=== PATIENT | female | born 1950 | race Hispanic/Latino ===

== ENCOUNTER 2020-06-11 10:00 | Observation (INO) | payer OTHER ==
[~2020-06-11] VITALS: Ht 165.1 cm; Wt 99.8 kg
[2020-06-11 15:33] LABS: BASOPHILS % (AUTO) 0.9 % (0.0-5.0); EOSINOPHILS % (AUTO) 1.6 % (0.0-8.0); HEMATOCRIT 40.3 % (36-48); LYMPHOCYTES % (AUTO) 25.9 % (21.0-51.0); MEAN CORPUSCULAR HEMOGLOBIN 29.3 pg (27.0-33.0); MEAN CORPUSCULAR VOLUME 91.4 fL (79-99); MONOCYTES % (AUTO) 4.9 % (3.0-13.0); NEUTROPHILS % (AUTO) 66.4 % (40.0-77.0); PLATELET COUNT (AUTO) 119 K/uL (130-400); RED BLOOD CELL COUNT(AUTO) 4.41 MIL/uL (4.00-5.50); RED CELL DISTRIBUTION WIDTH 12.2 % (11.0-15.5)
[2020-06-11 15:40] LABS: INR 1.02 (0.85-1.15); PROTHROMBIN TIME 10.9 SEC (9.6-11.6)
[2020-06-11 15:41] LABS: PARTIAL THROMBOPLASTIN TIME 23.8 SEC (26.3-35.5)
[2020-06-11 15:42] LABS: CREATININE 0.8 mg/dL (0.5-1.5); POTASSIUM 3.6 mmol/L (3.5-5.1)
[2020-06-14 10:24] VITALS: BP 180/66
[2020-06-14] MEDS ORDERED: SIMV-43 PO (11:48)
[2020-06-14] MEDS ORDERED: ASPI-1197 PO (11:48)
[2020-06-14] MEDS ORDERED: VITAMIN B3 PO (11:48)
[2020-06-14] MEDS ORDERED: LOSA50TA64 PO (11:48)
[2020-06-18] VITALS (26 sets, daily range): BP systolic 116–159; BP diastolic 56–79
[2020-06-18] MEDS ORDERED: LACTATED RINGERS 1000ML 1,000 ML IV ONE (06:17)
[2020-06-18] MEDS ORDERED: SODIUM CHLORIDE 0.9% 10 ML VIAL ONE (06:19)
[2020-06-18] MEDS ORDERED: vitamin d3 PO (06:53)
[2020-06-18] MEDS: CEFAZOLIN SODIUM 1 GM VIAL ONE ×2 (07:03→08:30)
[2020-06-18] MEDS ORDERED: LIDOCAINE PF 2% 5ML ABBOJECT ONE (07:03)
[2020-06-18] MEDS ORDERED: DEXAMETHASONE SOD PHOSPHATE 10MG/ML 1ML VIAL ONE (07:03)
[2020-06-18] MEDS ORDERED: GLYCOPYRROLATE 1 MG/5 ML SYRINGE ONE (07:03)
[2020-06-18] MEDS ORDERED: SUCCINYLCHOLINE CHLORIDE 20 MG/ML 10 ML VIAL ONE (07:03)
[2020-06-18] MEDS ORDERED: ROCURONIUM 10MG/1ML SYR 10 MG/ML ML ONE (07:04)
[2020-06-18] MEDS ORDERED: FENTANYL CITRATE PF 50 MCG/1 ML 2ML VIAL ONE ×2 (07:04→10:12)
[2020-06-18] MEDS ORDERED: PROPOFOL 10 MG/ML 20ML VIAL IV ONE ×2 (07:04→07:05)
[2020-06-18] MEDS ORDERED: NEOSTIGMINE 5MG/5ML SYR IV ONE (07:04)
[2020-06-18] MEDS ORDERED: MIDAZOLAM HCL 1 MG/ML 2ML VIAL ONE (07:04)
[2020-06-18] MEDS ORDERED: ONDANSETRON HCL 4 MG/2 ML VIAL ONE (07:04)
[2020-06-18] MEDS ORDERED: CEFAZOLIN SODIUM 1 GM VIAL ONE (07:47)
[2020-06-18] MEDS ORDERED: BUPIVACAINE/PF 0.25% 30ML VIAL IJ ONE ×2 (07:48→09:37)
[2020-06-18] MEDS ORDERED: DURAMORPH PF1 MG/ML 10ML AMP IV ONE (07:48)
[2020-06-18] MEDS ORDERED: TOBRAMYCIN SULFATE 40MG/1ML VIAL ONE (07:48)
[2020-06-18] MEDS ORDERED: THROMBIN-JMI 20000 UNIT KIT TP ONE (07:48)
[2020-06-18] MEDS ORDERED: VANCOMYCIN HCL 1 GM VIAL ONE (07:48)
[2020-06-18] MEDS ORDERED: EPHEDRINE SULFATE 50 MG/ML AMPULE ONE (08:28)
[2020-06-18] MEDS ORDERED: TRANEXAMIC ACID 1000MG/10ML ONE (08:42)
[2020-06-18] MEDS ORDERED: CALDOLOR 800MG+NS 250ML 250 ML IV ONE (09:08)
[2020-06-18] MEDS ORDERED: KETOROLAC TROMETHAMINE 30MG/ML ONE (09:33)
[2020-06-18] MEDS ORDERED: PHENYLEPHRINE HCL 10 MG/ML 1ML VIAL IV ONE (10:03)
[2020-06-18] MEDS ORDERED: NALOXONE HCL 0.4 MG/1 ML ML ONE (10:32)
[2020-06-18] MEDS ORDERED: ORPHENADRINE CITRATE 30 MG/ML ML IM SCH (11:45)
[2020-06-18] MEDS ORDERED: ACETAMINOPHEN-CODEINE 300/30MG TAB ONE (12:42)
== END 2020-06-18 14:40 | disposition home or self-care (01) ==
LOC: EDSTATUS 10:00 → DAHIP 06-18 05:57 → EDSTATUS 06-18 10:00
PROVIDERS: ADMIT Neurological Surgery; ATTEND Neurological Surgery
DX: M48.062 Spinal stenosis, lumbar region with neurogenic claudication (principal); Z20.828 Contact with and (suspected) exposure to other viral communicable diseases; M47.26 Other spondylosis with radiculopathy, lumbar region; I10 Essential (primary) hypertension; E78.00 Pure hypercholesterolemia, unspecified; F17.210 Nicotine dependence, cigarettes, uncomplicated; Z79.899 Other long term (current) drug therapy
CPT/HCPCS: 20930; 20931; 22633; 22840; 22853; 36415; 71045; 72110; 80048; 85025; 85610; 85730; 93005; 96360; 96361; 96372; A4215; A4216; A4221; A4222; A4223 ×2; A4657; A4663; A4930; A6260; C1776; G0378 ×6; J0330; J0690 ×2; J1030; J1100; J1741; J1885; J2001; J2250; J2274; J2310; J2360; J2370; J2405; J2704 ×2; J2710; J3010 ×2; J3260; J3370; J3490 ×5; J7030; J7120; U0003

== ENCOUNTER → 2022-12-25 | Outpatient (CLI) | payer OTHER ==
[~2022-12-25] MED LIST: ASPI-1197 PO; LOSA50TA64 PO; SIMV-43 PO; vitamin d3 PO
== END | disposition home or self-care (01) ==
LOC: RAH 14:01
PROVIDERS: ATTEND Family Medicine
DX: R10.32 Left lower quadrant pain (principal); R10.31 Right lower quadrant pain; Z90.710 Acquired absence of both cervix and uterus
CPT/HCPCS: 76856

== ENCOUNTER 2023-03-12 13:27 | Inpatient (IN) | payer OTHER, MEDICARE ==
[~2023-03-12] VITALS: Ht 165.1 cm; Wt 88.9 kg
[2023-03-12 14:07] LABS: BASOPHILS # (AUTO) 0.09 K/uL (0.00-0.20); BASOPHILS % (AUTO) 0.9 % (0.0-5.0); EOSINOPHILS # (AUTO) 0.07 K/uL (0.00-0.70); EOSINOPHILS % (AUTO) 0.7 % (0.0-8.0); HEMATOCRIT 37.9 % (36-48); IMMATURE GRANULOCYTE ABSOLUTE 0.04 K/uL (0-1); LYMPHOCYTES # (AUTO) 2.7 K/uL (1.0-4.8); LYMPHOCYTES % (AUTO) 26.9 % (21.0-51.0); MEAN CORPUSCULAR VOLUME 87.9 fL (79-99); MONOCYTES # (AUTO) 0.7 K/uL (0.1-1.0); MONOCYTES % (AUTO) 7.4 % (3.0-13.0); NEUTROPHILS # (AUTO) 6.4 K/uL (1.8-7.7); NEUTROPHILS % (AUTO) 63.7 % (40.0-77.0); PLATELET COUNT (AUTO) 212 K/uL (130-400); RED BLOOD CELL COUNT(AUTO) 4.31 MIL/uL (4.00-5.50); RED CELL DISTRIBUTION WIDTH 15.2 % (11.0-15.5)
[2023-03-12 14:18] LABS: APPEARANCE,URINE CLEAR (CLEAR); BILIRUBIN,URINE NEGATIVE (NEGATIVE); COLOR,URINE YELLOW (YELLOW); GLUCOSE, URINE (UA) >=1000 mg/dL (NEGATIVE); KETONES,URINE >=80 mg/dL (NEGATIVE); LEUKOCYTE ESTERASE ,URINE 75 Leu/uL (NEGATIVE); NITRATE,URINE NEGATIVE (NEGATIVE); PH,URINE 5.5 (5.0-8.0); PROTEIN,URINE NEGATIVE (NEGATIVE); UROBILINOGEN,URINE 0.2 mg/dL (0.2-1.0)
[2023-03-12 14:21] LABS: INR < 0.93 (0.85-1.15); PROTHROMBIN TIME 10.3 SEC (9.6-11.6)
[2023-03-12 14:23] LABS: ADD UA MICROSCOPIC YES
[2023-03-12 14:26] LABS: BACTERIA,URINE RARE /HPF (None Seen); SQUAMOUS EPITHELIAL CELL,UR RARE /HPF (0-2)
[2023-03-12 14:32] LABS: ALBUMIN 3.3 g/dL (3.5-5.0); BILIRUBIN,TOTAL 6.5 mg/dL (0.2-1.0); CREATININE 0.8 mg/dL (0.5-1.5)
[2023-03-12] MEDS ORDERED: INSULIN HUMULIN R 100 UNIT/ML 3ML SQ ONE (15:30)
[2023-03-12] MEDS ORDERED: 0.9%NACL 1000ML 1,000 ML IV ONE ×2 (15:30→16:30)
[2023-03-12 15:59] LABS: ABG BASE EXCESS -5.5 mmol/L (-2.0-3.0); ABG HCO3 18.3 mmol/L (21.0-28.0); ABG OXYGEN SATURATION 93.9 % (95.0-99.0); ABG PCO2 31 mmHg (32-45); ABG PH 7.384 (7.35-7.450); PO2, ARTERIAL BG 69.1 mmHg (83.0-108.0); VENT MODE, BG RA (ROOM AIR)
[2023-03-12] MEDS ORDERED: INSULIN GLARGINE 100 UNITS/ML 10 ML VIAL SQ ONE (16:19)
[2023-03-12] MEDS ORDERED: CLONIDINE HCL 0.1 MG TABLET PO PRN (16:30)
[2023-03-12] MEDS ORDERED: POTASSIUM CHLORIDE 10MEQ/100ML 100 ML IV PRN (16:30)
[2023-03-12] MEDS ORDERED: DOCUSATE SODIUM 100 MG CAP PO PRN (16:30)
[2023-03-12] MEDS ORDERED: MAGNESIUM 2GM PREMIX 50ML 50 ML IV SCH (16:30)
[2023-03-12] MEDS ORDERED: GLUCAGON 1MG KIT 1 MG ML IM PRN (16:30)
[2023-03-12] MEDS ORDERED: INSULIN REGULAR, HUMAN 3ML 100 UNIT in 0.9%NACL 100ML 99 ML IV PRN ×2 (16:30)
[2023-03-12] MEDS ORDERED: D5W-1/2 NS/20MEQ KCL 1,000 ML IV SCH (16:30)
[2023-03-12] MEDS ORDERED: ACETAMINOPHEN 650 MG SUPPOSITORY RC PRN (16:30)
[2023-03-12] MEDS ORDERED: INSULIN REGULAR, HUMAN 3ML 100 UNIT in 0.9%NACL 100ML 100 ML IV SCH ×2 (16:30)
[2023-03-12] MEDS ORDERED: POTASSIUM CHLORIDE 10% ELIXIR 20 MEQ/15 ML UDCUP PO PRN (16:30)
[2023-03-12] MEDS ORDERED: DEXTROSE 50%-WATER 50 ML DISP.SYRIN IV PRN (16:30)
[2023-03-12] MEDS ORDERED: MAGNESIUM 2GM PREMIX 50ML 50 ML IV PRN (16:30)
[2023-03-12] MEDS ORDERED: ACETAMINOPHEN 325 MG TAB PO PRN (16:30)
[2023-03-12] MEDS ORDERED: LACTULOSE 20 GM/30 ML UDCUP PO PRN (16:30)
[2023-03-12] MEDS ORDERED: POTASSIUM CHLORIDE 20MEQ/100ML 100 ML IV PRN (16:30)
[2023-03-12] MEDS ORDERED: ONDANSETRON 4MG INJ IVP PRN (16:30)
[2023-03-12] MEDS ORDERED: 0.9%NACL 1000ML 1,000 ML IV SCH (16:30)
[2023-03-12 16:47] LABS: SARS-CoV-2, RNA, NAAT NEGATIVE SARS CoV-2 (NEGATIVE)
[2023-03-12 16:52] LABS: INFLUENZA TYPE A Negative For Type A (NEGATIVE); INFLUENZA TYPE B Negative For Type B (NEGATIVE)
[2023-03-12] MEDS ORDERED: 0.9%NACL 50ML IV SCH (17:00)
[2023-03-12 17:05] LABS: CREATININE 0.7 mg/dL (0.5-1.5)
[2023-03-12] MEDS: 0.9%NACL 1000ML 1,000 ML IV SCH (17:25)
[2023-03-12] MEDS ORDERED: NS-20 MEQ KCL 1000ML 1,000 ML IV ONE (17:27)
[2023-03-12] MEDS: ZOSYN 3.375GM +NS 50ML IVPB SCH (17:51)
[2023-03-12 19:06] LABS: CHOLESTEROL 244 mg/dL (<200); HDL CHOLESTEROL 13 mg/dL (35-85); LDL DIRECT 151 mg/dL (0-99); TRIGLYCERIDES 235 mg/dL (30-200)
[2023-03-12] MEDS ORDERED: IBUPROFEN 200 MG TAB PO PRN (19:30)
[2023-03-12 21:00] VITALS: O2SAT 98
[2023-03-12] MEDS: INSULIN GLARGINE 100 UNITS/ML 10 ML VIAL SQ SCH (21:00)
[2023-03-12] MEDS ORDERED: GABA-529 PO (22:55)
[2023-03-12] MEDS ORDERED: AMLO2.5T4 PO (22:57)
[2023-03-12] MEDS ORDERED: OMEP40CA21 PO (22:59)
[2023-03-12 23:00] VITALS: BP 150/65; PULSE 61; RESP 23
[2023-03-12 23:03] LABS: CREATININE 0.5 mg/dL (0.5-1.5); POTASSIUM 3.2 mmol/L (3.5-5.1)
[2023-03-13] VITALS (40 sets, daily range): BP systolic 124–163; BP diastolic 53–84; PULSE 55–70; RESP 15–44; O2SAT 96–98
[2023-03-13] MEDS: ZOSYN 3.375GM +NS 50ML IVPB SCH ×3 (00:17→16:34)
[2023-03-13] MEDS: 0.9%NACL 1000ML 1,000 ML IV SCH ×3 (00:30→06:31)
[2023-03-13] MEDS: KCL 20 MEQ ERTAB PO PRN (02:13)
[2023-03-13 04:29] LABS: BASOPHILS # (AUTO) 0.07 K/uL (0.00-0.20); BASOPHILS % (AUTO) 1.2 % (0.0-5.0); EOSINOPHILS # (AUTO) 0.18 K/uL (0.00-0.70); IMMATURE GRANULOCYTE ABSOLUTE 0.02 K/uL (0-1); LYMPHOCYTES # (AUTO) 1.9 K/uL (1.0-4.8); LYMPHOCYTES % (AUTO) 32.1 % (21.0-51.0); MEAN CORPUSCULAR HEMOGLOBIN 29.5 pg (27.0-33.0); MEAN CORPUSCULAR HGB CONC 34.4 g/dL (32.0-36.0); MEAN CORPUSCULAR VOLUME 85.8 fL (79-99); MONOCYTES # (AUTO) 0.6 K/uL (0.1-1.0); MONOCYTES % (AUTO) 9.6 % (3.0-13.0); NEUTROPHILS # (AUTO) 3.3 K/uL (1.8-7.7); NEUTROPHILS % (AUTO) 53.8 % (40.0-77.0); PLATELET COUNT (AUTO) 108 K/uL (130-400); RED BLOOD CELL COUNT(AUTO) 3.73 MIL/uL (4.00-5.50); RED CELL DISTRIBUTION WIDTH 15.5 % (11.0-15.5); WHITE BLOOD COUNT (AUTO) 6.1 K/uL (4.8-10.8)
[2023-03-13 04:48] LABS: ALBUMIN 2.5 g/dL (3.5-5.0); BILIRUBIN,DIRECT 5.6 mg/dL (0.0-0.3); BILIRUBIN,TOTAL 6.2 mg/dL (0.2-1.0); CREATININE 0.5 mg/dL (0.5-1.5); MAGNESIUM 1.5 mg/dL (1.80-2.40); POTASSIUM 3.4 mmol/L (3.5-5.1); TOTAL PROTEIN, SERUM 6.3 g/dL (6.0-8.3)
[2023-03-13 04:50] LABS: INR < 0.93 (0.85-1.15); PROTHROMBIN TIME 10.2 SEC (9.6-11.6)
[2023-03-13 04:56] LABS: HEMOGLOBIN A1C 11.9 % (4.0-6.0)
[2023-03-13 08:23] LABS: CREATININE 0.5 mg/dL (0.5-1.5); POTASSIUM 3.9 mmol/L (3.5-5.1)
[2023-03-13] MEDS: ENOXAPARIN SODIUM 40 MG/0.4 ML SYRINGE SQ SCH (09:01)
[2023-03-13] MEDS: LOSARTAN 50 MG TABLET PO SCH (09:01)
[2023-03-13] MEDS: PANTOPRAZOLE 40 MG/VIAL IVP SCH (09:01)
[2023-03-13] MEDS: INSULIN GLARGINE 100 UNITS/ML 10 ML VIAL SQ SCH ×2 (09:03→20:37)
[2023-03-13] MEDS: INSULIN HUMULIN R 100 UNIT/ML 3ML SQ SCH ×4 (09:03→20:11)
[2023-03-13 12:30] LABS: CREATININE 0.9 mg/dL (0.5-1.5); POTASSIUM 3.8 mmol/L (3.5-5.1)
[2023-03-13 12:52] LABS: MAGNESIUM 1.6 mg/dL (1.80-2.40)
[2023-03-13] MEDS: MAGNESIUM 2GM PREMIX 50ML 50 ML IV PRN (13:11)
[2023-03-13] MEDS ORDERED: INSULIN GLARGINE 100 UNITS/ML 10 ML VIAL SQ ONE (14:00)
[2023-03-13 16:35] LABS: HEPATITIS A IGM ANTIBODY Non-Reactive (Nonreactive); HEPATITIS B CORE IGM ANTIBODY Non-Reactive (Negative); HEPATITIS B SURFACE ANTIGEN Non-Reactive (Nonreactive); HEPATITIS C ANTIBODY Non-Reactive (Nonreactive)
[2023-03-13 19:47] LABS: CREATININE 0.6 mg/dL (0.5-1.5); POTASSIUM 4.2 mmol/L (3.5-5.1)
[2023-03-14] VITALS (19 sets, daily range): BP systolic 121–156; BP diastolic 57–78; PULSE 46–71; RESP 13–32; O2SAT 95–99
[2023-03-14] MEDS: ZOSYN 3.375GM +NS 50ML IVPB SCH ×3 (00:12→16:42)
[2023-03-14] MEDS: 0.9%NACL 1000ML 1,000 ML IV SCH ×2 (00:13→14:53)
[2023-03-14 04:00] LABS: BASOPHILS # (AUTO) 0.09 K/uL (0.00-0.20); BASOPHILS % (AUTO) 1.6 % (0.0-5.0); EOSINOPHILS # (AUTO) 0.19 K/uL (0.00-0.70); EOSINOPHILS % (AUTO) 3.3 % (0.0-8.0); HEMATOCRIT 32.8 % (36-48); IMMATURE GRANULOCYTE ABSOLUTE 0.01 K/uL (0-1); LYMPHOCYTES # (AUTO) 2.1 K/uL (1.0-4.8); LYMPHOCYTES % (AUTO) 37.6 % (21.0-51.0); MEAN CORPUSCULAR HEMOGLOBIN 29.4 pg (27.0-33.0); MEAN CORPUSCULAR HGB CONC 34.1 g/dL (32.0-36.0); MEAN CORPUSCULAR VOLUME 86.1 fL (79-99); MONOCYTES # (AUTO) 0.5 K/uL (0.1-1.0); MONOCYTES % (AUTO) 8.8 % (3.0-13.0); NEUTROPHILS # (AUTO) 2.8 K/uL (1.8-7.7); NEUTROPHILS % (AUTO) 48.5 % (40.0-77.0); PLATELET COUNT (AUTO) 136 K/uL (130-400); RED BLOOD CELL COUNT(AUTO) 3.81 MIL/uL (4.00-5.50); RED CELL DISTRIBUTION WIDTH 16.1 % (11.0-15.5); WHITE BLOOD COUNT (AUTO) 5.7 K/uL (4.8-10.8)
[2023-03-14 04:19] LABS: ALBUMIN 2.4 g/dL (3.5-5.0); BILIRUBIN,DIRECT 2.8 mg/dL (0.0-0.3); CREATININE 0.6 mg/dL (0.5-1.5); MAGNESIUM 1.9 mg/dL (1.80-2.40); POTASSIUM 3.3 mmol/L (3.5-5.1); TOTAL PROTEIN, SERUM 6.2 g/dL (6.0-8.3)
[2023-03-14] MEDS: INSULIN HUMULIN R 100 UNIT/ML 3ML SQ SCH ×4 (06:12→20:12)
[2023-03-14] MEDS: KCL 20 MEQ ERTAB PO PRN ×2 (06:15→09:07)
[2023-03-14] MEDS: LOSARTAN 50 MG TABLET PO SCH (09:06)
[2023-03-14] MEDS: ENOXAPARIN SODIUM 40 MG/0.4 ML SYRINGE SQ SCH (09:07)
[2023-03-14] MEDS: INSULIN GLARGINE 100 UNITS/ML 10 ML VIAL SQ SCH ×2 (09:33→20:10)
[2023-03-14] MEDS: PANTOPRAZOLE 40 MG/VIAL IVP SCH (11:59)
[2023-03-15] VITALS (7 sets, daily range): BP systolic 124–140; BP diastolic 53–92; PULSE 61–95; RESP 17–19; O2SAT 98–99
[2023-03-15] MEDS: ZOSYN 3.375GM +NS 50ML IVPB SCH ×4 (01:46→23:52)
[2023-03-15 05:28] LABS: BASOPHILS # (AUTO) 0.07 K/uL (0.00-0.20); BASOPHILS % (AUTO) 1.3 % (0.0-5.0); EOSINOPHILS # (AUTO) 0.21 K/uL (0.00-0.70); EOSINOPHILS % (AUTO) 3.8 % (0.0-8.0); HEMATOCRIT 29.7 % (36-48); IMMATURE GRANULOCYTE ABSOLUTE 0.03 K/uL (0-1); LYMPHOCYTES # (AUTO) 2.1 K/uL (1.0-4.8); LYMPHOCYTES % (AUTO) 38.6 % (21.0-51.0); MEAN CORPUSCULAR HEMOGLOBIN 29.8 pg (27.0-33.0); MEAN CORPUSCULAR HGB CONC 34.7 g/dL (32.0-36.0); MEAN CORPUSCULAR VOLUME 85.8 fL (79-99); MONOCYTES # (AUTO) 0.6 K/uL (0.1-1.0); NEUTROPHILS # (AUTO) 2.5 K/uL (1.8-7.7); NEUTROPHILS % (AUTO) 45.8 % (40.0-77.0); PLATELET COUNT (AUTO) 141 K/uL (130-400); RED BLOOD CELL COUNT(AUTO) 3.46 MIL/uL (4.00-5.50); RED CELL DISTRIBUTION WIDTH 17.1 % (11.0-15.5); WHITE BLOOD COUNT (AUTO) 5.5 K/uL (4.8-10.8)
[2023-03-15 05:49] LABS: ALBUMIN 2.2 g/dL (3.5-5.0); BILIRUBIN,DIRECT 3.8 mg/dL (0.0-0.3); BILIRUBIN,TOTAL 4.5 mg/dL (0.2-1.0); CREATININE 0.7 mg/dL (0.5-1.5); MAGNESIUM 1.7 mg/dL (1.80-2.40); POTASSIUM 4.1 mmol/L (3.5-5.1); TOTAL PROTEIN, SERUM 5.9 g/dL (6.0-8.3)
[2023-03-15] MEDS: INSULIN HUMULIN R 100 UNIT/ML 3ML SQ SCH ×4 (06:01→22:38)
[2023-03-15] MEDS: INSULIN GLARGINE 100 UNITS/ML 10 ML VIAL SQ SCH ×2 (07:21→22:40)
[2023-03-15] MEDS: LOSARTAN 50 MG TABLET PO SCH (08:18)
[2023-03-15] MEDS: PANTOPRAZOLE 40 MG/VIAL IVP SCH (08:18)
[2023-03-15] MEDS: ENOXAPARIN SODIUM 40 MG/0.4 ML SYRINGE SQ SCH (08:19)
[2023-03-16] VITALS (7 sets, daily range): BP systolic 120–141; BP diastolic 57–72; PULSE 61–99; RESP 17–19; O2SAT 99–100
[2023-03-16 04:47] LABS: BASOPHILS # (AUTO) 0.07 K/uL (0.00-0.20); BASOPHILS % (AUTO) 0.9 % (0.0-5.0); EOSINOPHILS # (AUTO) 0.16 K/uL (0.00-0.70); HEMATOCRIT 29.3 % (36-48); IMMATURE GRANULOCYTE ABSOLUTE 0.03 K/uL (0-1); LYMPHOCYTES # (AUTO) 2.1 K/uL (1.0-4.8); LYMPHOCYTES % (AUTO) 26.8 % (21.0-51.0); MEAN CORPUSCULAR HEMOGLOBIN 29.3 pg (27.0-33.0); MEAN CORPUSCULAR HGB CONC 34.1 g/dL (32.0-36.0); MEAN CORPUSCULAR VOLUME 85.9 fL (79-99); MONOCYTES # (AUTO) 0.7 K/uL (0.1-1.0); MONOCYTES % (AUTO) 8.4 % (3.0-13.0); NEUTROPHILS # (AUTO) 4.8 K/uL (1.8-7.7); NEUTROPHILS % (AUTO) 61.5 % (40.0-77.0); PLATELET COUNT (AUTO) 120 K/uL (130-400); RED BLOOD CELL COUNT(AUTO) 3.41 MIL/uL (4.00-5.50); RED CELL DISTRIBUTION WIDTH 17.6 % (11.0-15.5); WHITE BLOOD COUNT (AUTO) 7.9 K/uL (4.8-10.8)
[2023-03-16 05:11] LABS: ALBUMIN 2.2 g/dL (3.5-5.0); BILIRUBIN,DIRECT 3.4 mg/dL (0.0-0.3); BILIRUBIN,TOTAL 4.2 mg/dL (0.2-1.0); CREATININE 0.7 mg/dL (0.5-1.5); MAGNESIUM 1.6 mg/dL (1.80-2.40); POTASSIUM 3.2 mmol/L (3.5-5.1)
[2023-03-16] MEDS: 0.9%NACL 1000ML 1,000 ML IV SCH ×3 (05:48→20:28)
[2023-03-16] MEDS: POTASSIUM CHLORIDE 20MEQ/100ML 100 ML IV PRN ×2 (05:51→10:11)
[2023-03-16] MEDS: INSULIN GLARGINE 100 UNITS/ML 10 ML VIAL SQ SCH ×2 (07:30→20:24)
[2023-03-16] MEDS: INSULIN HUMULIN R 100 UNIT/ML 3ML SQ SCH ×4 (07:30→20:24)
[2023-03-16] MEDS: ENOXAPARIN SODIUM 40 MG/0.4 ML SYRINGE SQ SCH (08:46)
[2023-03-16] MEDS: LOSARTAN 50 MG TABLET PO SCH ×2 (08:46→17:44)
[2023-03-16] MEDS: MAGNESIUM 2GM PREMIX 50ML 50 ML IV PRN (10:10)
[2023-03-16] MEDS: ZOSYN 3.375GM +NS 50ML IVPB SCH ×2 (10:11→15:56)
[2023-03-16] MEDS: PANTOPRAZOLE 40 MG/VIAL IVP SCH (10:11)
[2023-03-16] MEDS: KCL 20 MEQ ERTAB PO PRN ×2 (12:07→15:57)
[2023-03-17] VITALS (22 sets, daily range): BP systolic 119–156; BP diastolic 48–79; PULSE 54–67; RESP 13–20; O2SAT 97–98
[2023-03-17] MEDS: ZOSYN 3.375GM +NS 50ML IVPB SCH ×3 (00:08→18:03)
[2023-03-17 05:04] LABS: HEMATOCRIT 28.5 % (36-48); MEAN CORPUSCULAR HEMOGLOBIN 29.4 pg (27.0-33.0); MEAN CORPUSCULAR HGB CONC 34.4 g/dL (32.0-36.0); MEAN CORPUSCULAR VOLUME 85.6 fL (79-99); PLATELET COUNT (AUTO) 118 K/uL (130-400); RED BLOOD CELL COUNT(AUTO) 3.33 MIL/uL (4.00-5.50); RED CELL DISTRIBUTION WIDTH 18.7 % (11.0-15.5)
[2023-03-17 05:23] LABS: ALBUMIN 2.1 g/dL (3.5-5.0); BILIRUBIN,DIRECT 3.5 mg/dL (0.0-0.3); BILIRUBIN,TOTAL 4.5 mg/dL (0.2-1.0); CREATININE 0.6 mg/dL (0.5-1.5); POTASSIUM 4.1 mmol/L (3.5-5.1); TOTAL PROTEIN, SERUM 5.7 g/dL (6.0-8.3)
[2023-03-17] MEDS: INSULIN GLARGINE 100 UNITS/ML 10 ML VIAL SQ SCH ×2 (06:00→20:17)
[2023-03-17] MEDS: INSULIN HUMULIN R 100 UNIT/ML 3ML SQ SCH ×4 (06:00→20:16)
[2023-03-17] MEDS: ENOXAPARIN SODIUM 40 MG/0.4 ML SYRINGE SQ SCH (09:00)
[2023-03-17] MEDS: PANTOPRAZOLE 40 MG/VIAL IVP SCH (09:10)
[2023-03-17] MEDS: 0.9%NACL 1000ML 1,000 ML IV SCH ×2 (09:39→20:12)
[2023-03-17] MEDS ORDERED: EPHEDRINE SULFATE 50 MG/ML AMPULE ONE (11:45)
[2023-03-17] MEDS ORDERED: PROPOFOL 10 MG/ML 20ML VIAL IV ONE ×3 (11:45→12:09)
[2023-03-17] MEDS ORDERED: DEXAMETHASONE SOD PHOSPHATE 10MG/ML 1ML VIAL ONE (12:24)
[2023-03-18] VITALS (25 sets, daily range): BP systolic 123–152; BP diastolic 49–74; PULSE 55–67; RESP 12–20; O2SAT 97–98
[2023-03-18] MEDS: ZOSYN 3.375GM +NS 50ML IVPB SCH ×3 (00:17→16:07)
[2023-03-18] MEDS: 0.9%NACL 1000ML 1,000 ML IV SCH ×2 (04:27→14:00)
[2023-03-18] MEDS: INSULIN GLARGINE 100 UNITS/ML 10 ML VIAL SQ SCH ×2 (05:53→20:27)
[2023-03-18] MEDS: INSULIN HUMULIN R 100 UNIT/ML 3ML SQ SCH ×5 (05:53→20:29)
[2023-03-18] MEDS: LOSARTAN 50 MG TABLET PO SCH (08:32)
[2023-03-18] MEDS: PANTOPRAZOLE 40 MG/VIAL IVP SCH (08:33)
[2023-03-18] MEDS: ENOXAPARIN SODIUM 40 MG/0.4 ML SYRINGE SQ SCH (09:00)
[2023-03-18 10:48] LABS: ALBUMIN 2.2 g/dL (3.5-5.0); BILIRUBIN,TOTAL 10.9 mg/dL (0.2-1.0)
[2023-03-18 10:52] LABS: BILIRUBIN,DIRECT 9.4 mg/dL (0.0-0.3)
[2023-03-18] MEDS ORDERED: IOHEXOL-350 50ML VIAL IV ONE (11:47)
[2023-03-18] MEDS ORDERED: PROPOFOL 10 MG/ML 20ML VIAL IV ONE (12:33)
[2023-03-18] MEDS ORDERED: ONDANSETRON 4MG INJ ONE (12:33)
[2023-03-18] MEDS ORDERED: MIDAZOLAM HCL 1 MG/ML 2ML VIAL ONE (12:33)
[2023-03-18] MEDS ORDERED: SUCCINYLCHOLINE CHLORIDE 20 MG/ML 10 ML VIAL ONE (12:33)
[2023-03-18] MEDS ORDERED: LIDOCAINE PF 100MG/5ML (2%) SYRINGE 5ML ONE (12:33)
[2023-03-18] MEDS ORDERED: KETAMINE 50MG/ML SYRINGE 50 MG/ML DISP.SYRIN ONE (12:33)
[2023-03-18] MEDS ORDERED: LIDOCAINE HCL 4% LTA SOL 4 ML VIAL ONE (12:34)
[2023-03-18] MEDS ORDERED: FENTANYL CITRATE PF 50 MCG/1 ML 2ML VIAL ONE (12:34)
[2023-03-18] MEDS ORDERED: INDOMETHACIN 100 MG SUPP.RECT RC ONE (13:00)
[2023-03-18 16:41] LABS: ALBUMIN 2.2 g/dL (3.5-5.0); BILIRUBIN,TOTAL 10.5 mg/dL (0.2-1.0); CREATININE 0.6 mg/dL (0.5-1.5); POTASSIUM 3.9 mmol/L (3.5-5.1); TOTAL PROTEIN, SERUM 5.9 g/dL (6.0-8.3)
[2023-03-18] MEDS ORDERED: HYDROMORPHONE 1 MG INJ IVP PRN (17:00)
[2023-03-18] MEDS ORDERED: APAP/CODEINE 120/12MG 5ML PO STA (17:19)
[2023-03-18] MEDS ORDERED: SIMETHICONE 80 MG TAB.CHEW PO PRN (17:30)
[2023-03-19] VITALS: BP 120/52; PULSE 65; RESP 20
[2023-03-19] MEDS: ZOSYN 3.375GM +NS 50ML IVPB SCH ×3 (01:15→17:22)
[2023-03-19 04:04] VITALS: BP 122/50; PULSE 64; RESP 20
[2023-03-19] MEDS: INSULIN GLARGINE 100 UNITS/ML 10 ML VIAL SQ SCH (06:03)
[2023-03-19] MEDS: INSULIN HUMULIN R 100 UNIT/ML 3ML SQ SCH ×3 (06:03→16:26)
[2023-03-19 06:40] LABS: HEMATOCRIT 27.8 % (36-48); MEAN CORPUSCULAR HEMOGLOBIN 29.6 pg (27.0-33.0); MEAN CORPUSCULAR HGB CONC 33.8 g/dL (32.0-36.0); MEAN CORPUSCULAR VOLUME 87.4 fL (79-99); RED BLOOD CELL COUNT(AUTO) 3.18 MIL/uL (4.00-5.50); RED CELL DISTRIBUTION WIDTH 19.8 % (11.0-15.5); WHITE BLOOD COUNT (AUTO) 8.7 K/uL (4.8-10.8)
[2023-03-19 07:03] LABS: ALBUMIN 1.9 g/dL (3.5-5.0); BILIRUBIN,DIRECT 3.1 mg/dL (0.0-0.3); BILIRUBIN,TOTAL 4.3 mg/dL (0.2-1.0); CREATININE 0.7 mg/dL (0.5-1.5); POTASSIUM 3.7 mmol/L (3.5-5.1); TOTAL PROTEIN, SERUM 5.5 g/dL (6.0-8.3)
[2023-03-19 07:46] VITALS: O2SAT 98
[2023-03-19 08:00] VITALS: BP 125/99; PULSE 60; RESP 19
[2023-03-19] MEDS: LOSARTAN 50 MG TABLET PO SCH (08:28)
[2023-03-19] MEDS: PANTOPRAZOLE 40 MG/VIAL IVP SCH (08:28)
[2023-03-19] MEDS: ENOXAPARIN SODIUM 40 MG/0.4 ML SYRINGE SQ SCH (09:00)
[2023-03-19 11:47] VITALS: BP 117/58; PULSE 61; RESP 18
[2023-03-19] MEDS: 0.9%NACL 1000ML 1,000 ML IV SCH ×2 (13:52)
[2023-03-19 16:00] VITALS: BP 137/72; PULSE 69; RESP 18
[2023-03-19] MEDS: KCL 20 MEQ ERTAB PO PRN (17:22)
[2023-03-20] MEDS ORDERED: INSU100I70 SQ (11:55)
== END 2023-03-19 18:55 | disposition home or self-care (01) | DRG 444 ==
LOC: EDH 13:27 → EDHIP 16:19 → 2BH 20:59 → 2AH 03-14 14:24 → 3DH 03-14 23:24
PROVIDERS: ADMIT Internal Medicine Pulmonary Disease; ATTEND Internal Medicine Pulmonary Disease
PROC: 0DJ08ZZ Inspection of Upper Intestinal Tract, Via Natural or Artificial Opening Endoscopic (ICD-10-PCS; principal; 2023-03-17)
PROC: 0F798DZ Dilation of Common Bile Duct with Intraluminal Device, Via Natural or Artificial Opening Endoscopic (ICD-10-PCS; 2023-03-18)
PROC: BF101ZZ Fluoroscopy of Bile Ducts using Low Osmolar Contrast (ICD-10-PCS; 2023-03-18)
DX: K80.33 Calculus of bile duct with acute cholangitis with obstruction (principal); E11.10 Type 2 diabetes mellitus with ketoacidosis without coma; K85.90 Acute pancreatitis without necrosis or infection, unspecified; E87.1 Hypo-osmolality and hyponatremia; N30.00 Acute cystitis without hematuria; Z20.822 Contact with and (suspected) exposure to COVID-19; E78.00 Pure hypercholesterolemia, unspecified; E66.09 Other obesity due to excess calories; I10 Essential (primary) hypertension; Z90.49 Acquired absence of other specified parts of digestive tract; Z90.710 Acquired absence of both cervix and uterus; Z68.32 Body mass index [BMI] 32.0-32.9, adult
CPT/HCPCS: 36415; 36600; 43238; 43274; 71045; 74176; 74181; 74328; 74330; 76705; 80048; 80053; 80061; 80074; 80076; 81001; 82010; 82140; 82150; 82247; 82248; 82330; 82550; 82803; 82948; 83036; 83605; 83690; 83735; 83874; 83880; 84484; 85025; 85027; 85610; 87040; 87088; 87635; 87804; 88112; 88305; 88307; 93005; 96361; 96365; 96372; 99291; A4606; C1769; C2625; C9113; G0378; J0330; J1100; J1650; J1815; J2001; J2250; J2405; J2543; J2704; J3010; J3475; J3480; J3490; J7030; Q9967; A4215; A4216; A4222; A4223; A4620; A4649; A4657; A7002; S8037